=== PATIENT | male | born 1985 | race Caucasian/White ===

== ENCOUNTER 2018-06-21 20:10 | Inpatient (IN) | payer OTHER ==
[~2018-06-21] VITALS: Ht 182.9 cm; Wt 122.9 kg
--- NOTE | ~2018-06-21 | P ---
[facility] [place] [address] PROCEDURE REPORT Name: ASHLEY CAMACHO Room #: 427-P ADM IN M.R.#: [id number] Admission: 06/21/18 Attend Phys: Pee Duran Discharge: Date of : 83 Report #: [id number] THIS REPORT FOR: //name// CC: Pee Duran MD NO PCP DATE OF SERVICE: 06/24/2018 PROCEDURE PERFORMED: ERCP. HISTORY OF PRESENT ILLNESS: The patient is a 32-year-old male who was admitted with pancreatitis, no previous history. No history of alcohol. He underwent an ultrasound of the abdomen on June 21, which showed dilation of the common bile duct at 6.4 mm. Gallbladder was normal. No evidence of stones. MRCP was then performed. No definite intraluminal filling defects is seen to suggest obstruction of the bile duct. Pancreatic duct is normal. Gallbladder normal. Peripancreatic mesenteric inflammatory changes noted and edema consistent with clinical history of acute pancreatitis. The patient had a significant elevation in his bilirubin on admission of 6.0. This has been trending down daily. His bilirubin today is 3.5. His lipase is also improved dramatically from a high of 18,000 to 597. He was febrile yesterday, not today. He has been on IV antibiotics. His white count yesterday was 12.5. Plan is for ERCP. DESCRIPTION OF PROCEDURE: The risks and benefits of the procedure were explained to the patient and those risks including but not limited to bleeding, perforation and the risk of sedation as well as potential risk for post-ERCP pancreatitis. He understood these risks and gave informed consent. The procedure was performed in the Interventional Radiology suite under general anesthesia. A 50 mg indomethacin rectal suppository was given prior to the procedure. The patient was also given cefepime, which he continues to be on as well on a scheduled basis. Next, using an Olympus standard ERCP side-viewing scope, the scope was placed in the patient's mouth and advanced under direct vision to the esophagus, stomach and into the second portion of the duodenum. The major papilla was identified and normal in appearance. Next, using a [employer] 0.025 - sphincterotome catheter, I attempted to cannulate the common bile duct. Initially, the pancreatic duct was cannulated several times, which appeared normal with contrast dye. Eventually, I was able to fill the common bile duct partially with dye; however, in the distal duct, there was a negative portion of filling no obvious stone was noted here. There was no obvious tortuous distal duct, but the very distal common bile duct did not fill normally. I tried multiple times to advance the catheter and/or a wire through this area and was unsuccessful. Several pictures were obtained showing the negative image. At this point, I felt multiple attempts were made and they were unsuccessful to cannulate the common bile duct, even though contrast was filling the mid to proximal common bile duct as well as the intrahepatics. These were [address] [address] PROCEDURE REPORT Name: ASHLEY CAMACHO Room #: 427-P [facility] IN M.R.#: [id number] Admission: 06/21/18 Attend Phys: Pee Duran Discharge: Date of : 83 Report #: [id number] noted to be somewhat dilated as well. At this point, the catheter was withdrawn and the scope was withdrawn and the procedure terminated. The patient tolerated the procedure well. IMPRESSION: Abnormal appearance of the distal common bile duct, difficult to determine as only partial filling occurred in the mid to proximal common bile duct. No obvious stone was noted in this area. No obvious stricture, although need to consider the possibility of this and it is possible the patient has edema from the pancreas is causing this appearance as well. The pancreatic duct appeared normal. RECOMMENDATIONS: 1. Observe the patient post-procedure. 2. Repeat liver function tests as well as lipase and CBC in the morning. If his numbers continue to improve, could consider possible discharge tomorrow. I would recommend an endoscopic ultrasound as an outpatient in the next few weeks for further evaluation of the distal common bile duct and the pancreas. Thank you for allowing me to participate in his care. By: [id number] Jatin Mann MD /nt
[2018-06-21 20:11] VITALS: BP 117/77
[2018-06-21 21:12] LABS: BASOPHILS 0.5 % (0.0-2.0); EOSINOPHILS 0.9 % (0.0-3.0); HEMATOCRIT 41.4 % (42.0-52.0); HEMOGLOBIN 14.4 gm/dL (14.0-18.0); LYMPHOCYTES 12.7 % (24.0-44.0); MCH 29.6 pg (26.0-34.0); MCHC 34.6 g/dL (28.0-37.0); MCV 85.3 fL (80.0-100.0); MONOCYTES 7.6 % (1.0-8.0); PLATELET COUNT 227 thou/uL (150-400); POLYS 78.3 % (36.0-66.0); RBC 4.86 mil/uL (4.50-6.00); RDW 12.9 % (10.5-14.5); WBC 11.5 thou/uL (4.0-11.0)
[2018-06-21 21:12] LABS: URINE BILIRUBIN 2+ (Negative); URINE BLOOD 1+ (Negative); URINE CLARITY CLEAR; URINE COLOR YELLOW; URINE GLUCOSE-RANDOM* NEGATIVE (Negative); URINE KETONES NEGATIVE (Negative); URINE LEUKOCYTES-REFLEX NEGATIVE (Negative); URINE NITRITE-REFLEX NEGATIVE (Negative); URINE PROTEIN (DIPSTICK) NEGATIVE (Negative); URINE UROBILINOGEN 0.2 E.U./dl (0.2-1.0)
[2018-06-21 21:19] LABS: CALCIUM 9.4 mg/dL (8.5-10.1); CREATININE 1.1 mg/dL (0.7-1.3); POTASSIUM 3.1 mmol/L (3.5-5.1)
[2018-06-21 21:23] LABS: ICTOTEST (BILI CONFIRMATORY) Positive (Negative)
[2018-06-21 21:26] LABS: TOTAL PROTEIN 7.8 g/dL (6.4-8.2)
[2018-06-21 21:30] LABS: BACTERIA-REFLEX 1-9 Few /HPF (None Seen); CASTS None Seen /LPF (None Seen); CRYSTALS None Seen /LPF (None Seen); SQUAMOUS 0-3 Few /LPF (0-3); URINE RBC 0-2 Rare /HPF (0-2); URINE WBC-REFLEX 0-5 Rare /HPF (0-5)
[2018-06-21 22:54] VITALS: BP 111/74
[2018-06-21 23:06] VITALS: BP 124/66
[2018-06-21 23:25] VITALS: BP 113/65
--- NOTE | 2018-06-22 00:59 | NUR ---
PT ARRIVED INTO [facility] AT AROUND 2300HRS. HE IS ALERT AND ORIENTED. AMBULATORY. C/O PAIN IN THE EPIGASTRIC AREA. GIVEN DIULADID WITH RELIEF.SATTING WELL ON /. AFEBRILE. DENIES NAUSEA. NPO.RESTING QUIETLY AT THIS TIME.
[2018-06-22 03:35] VITALS: BP 111/65
[2018-06-22 05:38] LABS: HEMATOCRIT 38.1 % (42.0-52.0); HEMOGLOBIN 13.1 gm/dL (14.0-18.0); MCH 29.4 pg (26.0-34.0); MCHC 34.3 g/dL (28.0-37.0); MCV 85.7 fL (80.0-100.0); RBC 4.44 mil/uL (4.50-6.00); RDW 13.2 % (10.5-14.5); WBC 8.5 thou/uL (4.0-11.0)
[2018-06-22 05:55] LABS: ALBUMIN 3.4 g/dL (3.4-5.0); CREATININE 0.9 mg/dL (0.7-1.3); POTASSIUM 3.7 mmol/L (3.5-5.1); TOTAL BILIRUBIN 5.8 mg/dL (<0.1-1.0); TOTAL PROTEIN 6.7 g/dL (6.4-8.2)
[2018-06-22 07:46] VITALS: BP 119/73
--- NOTE | 2018-06-22 08:05 | NUR ---
RECEIVED PT APPROX 0700. A/O. C/O PAIN MANAGED BY MEDS ORDERED. NO NOTED SOA. NO NV. GOAL IS TO GET PAIN UNDER CONTROL TODAY. PT IN MRI AT THIS TIME. WILL CONT. TO MONITOR.
[2018-06-22 09:58] LABS: CHOLESTEROL 149 mg/dL (<200); HDL CHOLESTEROL 28 mg/dL (>40); LDL CHOLESTEROL 103 mg/dL (<100); TC:HDL 5.3 Ratio (Not establshd); TRIGLYCERIDE 90 mg/dL (<150); VLDL 18 mg/dL (<40)
[2018-06-22 15:41] VITALS: BP 121/77
[2018-06-22 19:53] VITALS: BP 143/91
--- NOTE | 2018-06-23 05:40 | NUR ---
ASSUMED CARE AT 1900, ASSESSMENT COMPLETED. PT REPORTS PAIN TO GENERALIZED ABD, SOMETIMES WORSE IN MID/UMBILICAL REGION. C/O NAUSEA WHEN HE MOVES AROUND, NO EMESIS OVERNIGHT. IV FLUIDS INFUSING AT 150 ML/HR. PAIN AND NAUSEA MEDS GIVEN ONCE OVERNIGHT. HAS NOT REQUESTED ANY ICE CHIPS OVERNIGHT, NO PO MEDS. SLIGHT TEMP AT HS 100.2. NO OTHER CONCERNS, WILL CONTINUE TO MONITOR.
[2018-06-23 05:48] LABS: HEMATOCRIT 36.8 % (42.0-52.0); HEMOGLOBIN 12.4 gm/dL (14.0-18.0); MCHC 33.6 g/dL (28.0-37.0); MCV 86.3 fL (80.0-100.0); RBC 4.26 mil/uL (4.50-6.00); RDW 12.7 % (10.5-14.5); WBC 12.5 thou/uL (4.0-11.0)
[2018-06-23 05:52] VITALS: BP 151/90
[2018-06-23 06:07] LABS: ALBUMIN 3.1 g/dL (3.4-5.0); CALCIUM 8.6 mg/dL (8.5-10.1); CREATININE 0.8 mg/dL (0.7-1.3); DIRECT BILIRUBIN 3.3 mg/dL (<0.1-0.3); MAGNESIUM 1.5 mg/dL (1.8-2.4); POTASSIUM 3.6 mmol/L (3.5-5.1); TOTAL BILIRUBIN 4.4 mg/dL (<0.1-1.0)
[2018-06-23 08:00] VITALS: BP 130/79
--- NOTE | 2018-06-23 18:00 | NUR ---
PT ASSESSED AT START OF SHIFT. STATES PAIN IS SOME BETTER. HAS BEEN RUNNING FEVER. IV ANTIBIOTICS STARTED AND BLOOD CULTURE OBTAINED FIRST. PT UP ONLY TO GO TO THE BATHROOM. STATES IT HURTS TO WALK AROUND. DENIED NAUSEA. TAKING ICE ONLY. PLAN FOR ERCP IN AM. MOTHER AT BEDSIDE.
[2018-06-23 20:04] VITALS: BP 129/79
[2018-06-24 04:25] VITALS: BP 117/76
[2018-06-24 04:32] LABS: CALCIUM 8.7 mg/dL (8.5-10.1); CREATININE 0.9 mg/dL (0.7-1.3); TOTAL BILIRUBIN 3.5 mg/dL (<0.1-1.0); TOTAL PROTEIN 6.2 g/dL (6.4-8.2)
--- NOTE | 2018-06-24 06:37 | NUR ---
ASSUMED CARE AT 1900, ASSESSMENT COMPLETED. PT REPORTS MODERATE PAIN IN GENERALIZED ABD, GIVEN IV PAIN MEDS x2. DENIED NAUSEA OVERNIGHT. TOLERATED ICE CHIPS UNTIL MIDNIGHT, THEN NPO FOR ERCP TODAY. PT AWARE HE IS NPO. HS TEMP 100.5, AFEBRILE THIS AM. IV FLUIDS INFUSING OVERNIGHT. NO OTHER CONCERNS, WILL CONTINUE TO MONITOR.
[2018-06-24 17:29] VITALS: BP 118/63
[2018-06-24 19:27] VITALS: BP 131/73
--- NOTE | 2018-06-24 20:24 | NUR ---
ASSUMED CARE OF PT AT 0700. ASSESSMENT COMPLETED. A&O,X4. C/O ABD PAIN, PAIN MEDS GIVEN ORDERED. DENIES N/V/D. LBM 2/3. ERCP TODAY - PT LEFT AT 0848 AND RETURNED IN STABLE CONDITION. IV ABX SENT WITH PT TO ADMINISTER IN ANOTHER DEPT. ANOTHER IV ACCESS OBTAINED, LEFT HAND IV. ADVANCED TO CLEAR LIQUID DIET. DENIES ABD PAIN AT THIS TIME. UP AD SIMON. MOTHER AT BEDSIDE THIS EVENING. END OF SHIFT.
[2018-06-25 04:47] VITALS: BP 126/75
[2018-06-25 05:21] LABS: HEMATOCRIT 36.3 % (42.0-52.0); HEMOGLOBIN 12.2 gm/dL (14.0-18.0); MCH 28.8 pg (26.0-34.0); MCHC 33.5 g/dL (28.0-37.0); MCV 85.9 fL (80.0-100.0); RBC 4.22 mil/uL (4.50-6.00); RDW 12.6 % (10.5-14.5); WBC 10.7 thou/uL (4.0-11.0)
[2018-06-25 05:39] LABS: ALBUMIN 2.7 g/dL (3.4-5.0); CALCIUM 9.2 mg/dL (8.5-10.1); CREATININE 0.7 mg/dL (0.7-1.3); DIRECT BILIRUBIN 1.4 mg/dL (<0.1-0.3); POTASSIUM 3.9 mmol/L (3.5-5.1)
--- NOTE | 2018-06-25 06:29 | NUR ---
ASSUMED CARE AT 1900, ASSESSMENT COMPLETED. PT REPORTED MINIMAL PAIN OVERNIGHT, ONLY GAVE DILAUDID ONCE LATE IN THE AM. DENIED NAUSEA OR SOB. TOLERATING CLEAR LIQUIDS; PER GI NOTE, WENT AHEAD AND ADVANCED DIET TO FULL LIQUIDS FOR BREAKFAST TO TEST PT'S TOLERANCE. PT REPORTED HAVE A LARGE, HARD BM AROUND MIDNIGHT. IV FLUIDS INFUSING. PT REPORTS HE IS HOPING TO D/C HOME TODAY. NO OTHER CONCERNS, WILL CONTINUE TO MONITOR.
[2018-06-25 08:10] VITALS: BP 121/78
--- NOTE | 2018-06-25 10:38 | NUR ---
DR. MCNEAL AT BEDSIDE. ADVANCED DIET TOLERATED. NEW PAIN MED ORDER, D/C IV PAIN MEDS AND START ULTRAM 50 MG Q4H PRN FOR PAIN. D/C PENDING IF TOLERATING DIET AND PAIN WELL CONTROLLED.
[2018-06-25] MEDS ORDERED: TRAMADOL 50 MG50 MG PO (10:39)
--- NOTE | 2018-06-25 11:10 | NUR ---
ASSUMED CARE OF PT AT 0700. ASSESSMENT COMPLETED. DENIES PAIN, N/V/D. LAST BM TODAY. TOLERATING FULL LIQUID DIET, WILL ADVANCE ORDERED. MOTHER AT BEDSIDE. PT WANTS TO DISCHARGE TODAY. WILL CONTINUE TO MONITOR.
[2018-06-25 12:39] VITALS: BP 121/78
--- NOTE | 2018-06-25 14:17 | NUR ---
NEW DISCHARGE ORDERS. PT TOLERATED BLAND LUNCH, NO ABD PAIN OR N/V. DENIES PAIN OR NAUSEA MEDS. PT DRESSED IN STREET CLOTHES. MOTHER AT BEDSIDE. IV X2 REMOVED, GUAZE IN PLACE. NEW SCRIPTS AND CARENOTES GIVEN TO PT. DISCHARGE INFORMATION DISCUSSED, NO QUESTIONS OR CONCERNS. INSTRUCTED TO FOLLOW UP WITH GI OUTPATIENT. PT LEFT THE UNIT VIA WHEELCHAIR IN STABLE CONDITION AT APPROX 14:00.
== END 2018-06-25 14:25 | disposition home or self-care (01) | DRG 438 ==
LOC: ER 20:10 → EROBS 22:00 → 4E 22:00
PROVIDERS: Emergency Medicine; Internal Medicine Gastroenterology; Nurse Practitioner Acute Care; Specialist; ADMIT Hospitalist
PROC: 0F798ZZ Dilation of Common Bile Duct, Via Natural or Artificial Opening Endoscopic (ICD-10-PCS; principal; 2018-06-24)
DX: K85.10 Biliary acute pancreatitis without necrosis or infection (principal); E43 Unspecified severe protein-calorie malnutrition; F17.210 Nicotine dependence, cigarettes, uncomplicated; E87.6 Hypokalemia; R74.0 Nonspecific elevation of levels of transaminase and lactic acid dehydrogenase [LDH]; K83.8 Other specified diseases of biliary tract; Z68.36 Body mass index [BMI] 36.0-36.9, adult
CPT/HCPCS: 10084; 62110; 62900; 70005

== ENCOUNTER 2018-12-08 20:07 | Emergency (ER) | payer BC, OTHER ==
[~2018-12-08] VITALS: Ht 182.9 cm; Wt 104.3 kg
[~2018-12-08 20:07] MED LIST: TRAMADOL 50 MG50 MG PO
[2018-12-08 20:35] LABS: URINE BLOOD 3+ (Negative); URINE CLARITY CLEAR; URINE COLOR YELLOW; URINE GLUCOSE-RANDOM* NEGATIVE (Negative); URINE KETONES 1+ (Negative); URINE LEUKOCYTES-REFLEX NEGATIVE (Negative); URINE NITRITE-REFLEX NEGATIVE (Negative); URINE PROTEIN (DIPSTICK) 1+ (Negative); URINE SPECIFIC GRAVITY >= 1.030 (1.005-1.035)
[2018-12-08 20:36] LABS: ICTOTEST (BILI CONFIRMATORY) Negative (Negative); URINE BILIRUBIN NEGATIVE (Negative)
[2018-12-08 20:43] LABS: ABSOLUTE NEUTROPHILS 6.9 thou/uL (1.4-8.2); BASOPHILS 0.4 % (0.0-2.0); EOSINOPHILS 0.7 % (0.0-3.0); HEMATOCRIT 40.9 % (42.0-52.0); HEMOGLOBIN 13.7 gm/dL (14.0-18.0); LYMPHOCYTES 13.4 % (24.0-44.0); MCH 29.3 pg (26.0-34.0); MCHC 33.6 g/dL (28.0-37.0); MCV 87.3 fL (80.0-100.0); MONOCYTES 5.2 % (1.0-8.0); PLATELET COUNT 211 thou/uL (150-400); POLYS 80.3 % (36.0-66.0); RBC 4.68 mil/uL (4.50-6.00); RDW 13.1 % (10.5-14.5); WBC 8.6 thou/uL (4.0-11.0)
[2018-12-08 20:43] LABS: BACTERIA-REFLEX 1-9 Few /HPF (None Seen); CASTS None Seen /LPF (None Seen); CRYSTALS None Seen /LPF (None Seen); SQUAMOUS None Seen /LPF (0-3); URINE RBC >20 Many /HPF (0-2); URINE WBC-REFLEX None Seen /HPF (0-5)
[2018-12-08 20:52] LABS: CALCIUM 9.8 mg/dL (8.5-10.1); CREATININE 1.1 mg/dL (0.7-1.3); POTASSIUM 3.8 mmol/L (3.5-5.1)
[2018-12-08 21:04] LABS: ALBUMIN 4.5 g/dL (3.4-5.0); TOTAL BILIRUBIN 0.6 mg/dL (<0.1-1.0); TOTAL PROTEIN 8.2 g/dL (6.4-8.2)
[2018-12-08] MEDS ORDERED: TRAMADOL 50 MG50 MG PO (21:45)
[2018-12-08] MEDS ORDERED: ONDANSETRON ODT8 MG PO (21:45)
[2018-12-08] MEDS ORDERED: FLOMAX0.4 MG PO (21:45)
[2018-12-08] MEDS ORDERED: TORADOL 10 MG T10 MG PO (21:45)
[2018-12-08 22:07] VITALS: BP 113/60
== END 2018-12-08 22:11 | disposition home or self-care (01) ==
LOC: ER 20:07
PROVIDERS: Emergency Medicine
DX: N20.1 Calculus of ureter (principal); R11.2 Nausea with vomiting, unspecified; R10.11 Right upper quadrant pain; E66.9 Obesity, unspecified; F17.210 Nicotine dependence, cigarettes, uncomplicated; Z98.890 Other specified postprocedural states

== ENCOUNTER 2019-12-16 01:15 | Inpatient (IN) | payer BC, OTHER ==
[2019-12-16] VITALS (7 sets, daily range): BP systolic 109–139; BP diastolic 67–82
[~2019-12-16] VITALS: Ht 182.9 cm; Wt 118.3 kg
[~2019-12-16 01:15] MED LIST changes: +FLOMAX0.4 MG PO; +ONDANSETRON ODT8 MG PO; +TORADOL 10 MG T10 MG PO
[2019-12-16] MEDS ORDERED: NOHOMEMEDICATIONS (01:19)
[2019-12-16 01:40] LABS: URINE BILIRUBIN NEGATIVE (Negative); URINE BLOOD 1+ (Negative); URINE CLARITY CLEAR; URINE COLOR YELLOW; URINE GLUCOSE-RANDOM* NEGATIVE (Negative); URINE KETONES TRACE (Negative); URINE LEUKOCYTES-REFLEX NEGATIVE (Negative); URINE NITRITE-REFLEX NEGATIVE (Negative); URINE PROTEIN (DIPSTICK) NEGATIVE (Negative); URINE SPECIFIC GRAVITY >= 1.030 (1.005-1.035); URINE UROBILINOGEN 0.2 E.U./dl (0.2-1.0)
[2019-12-16 01:49] LABS: ABSOLUTE NEUTROPHILS 5.1 thou/uL (1.4-8.2); BASOPHILS 0.5 % (0.0-2.0); EOSINOPHILS 2.1 % (0.0-3.0); HEMATOCRIT 43.4 % (42.0-52.0); HEMOGLOBIN 14.6 gm/dL (14.0-18.0); MCH 29.5 pg (26.0-34.0); MCHC 33.7 g/dL (28.0-37.0); MCV 87.6 fL (80.0-100.0); MONOCYTES 5.1 % (1.0-8.0); PLATELET COUNT 227 thou/uL (150-400); POLYS 70.3 % (36.0-66.0); RBC 4.96 mil/uL (4.50-6.00); WBC 7.3 thou/uL (4.0-11.0)
[2019-12-16 01:57] LABS: CALCIUM 8.7 mg/dL (8.5-10.1); POTASSIUM 3.9 mmol/L (3.5-5.1)
[2019-12-16 02:03] LABS: ALBUMIN 4.3 g/dL (3.4-5.0); TOTAL BILIRUBIN 0.3 mg/dL (0.2-1.0); TOTAL PROTEIN 8.2 g/dL (6.4-8.2)
[2019-12-16 02:08] LABS: BACTERIA-REFLEX None Seen /HPF (None Seen); CASTS None Seen /LPF (None Seen); CRYSTALS None Seen /LPF (None Seen); MUCUS None Seen strn/LPF (None Seen); SQUAMOUS None Seen /LPF (0-3); URINE RBC 0-2 Rare /HPF (0-2); URINE WBC-REFLEX None Seen /HPF (0-5)
[2019-12-17 05:00] VITALS: BP 139/78
[2019-12-17 07:45] VITALS: BP 142/80
[2019-12-17] MEDS ORDERED: NORCO 10-325 T1 EACH PO (10:06)
[2019-12-17 12:56] VITALS: BP 142/80
--- NOTE | 2019-12-18 09:16 | O ---
[facility] [place] [address] OPERATIVE REPORT Name: ASHLEY CAMACHO Room #: 441-P [facility] IN M.R.#: [id number] Admission: 12/16/19 Attend Phys: Dino Mann MD Discharge: 12/17/19 Date of : 83 Report #: [id number] THIS REPORT FOR: cc: EMILY - No family physician/PCP EMILY - No family physician/PCP Nicolás Gustafson MD ~ CC: Dino DIAZ physician/PCP DATE OF SERVICE: 12/17/2019 PREOPERATIVE DIAGNOSIS: Acute cholecystitis. POSTOPERATIVE DIAGNOSIS: Acute cholecystitis. OPERATION: Laparoscopic cholecystectomy. SURGEON: Nicolás Gustafson MD ANESTHESIA: General. ESTIMATED BLOOD LOSS: 30 mL. SPECIMEN: Gallbladder. DESCRIPTION OF PROCEDURE: After informed consent was obtained, the patient was brought to the operating room and placed supine. SCDs were placed and working, preoperative antibiotics were administered, general anesthesia was induced. The abdomen was prepped and draped in the usual sterile fashion. A 10-mm incision was made above the umbilicus. Fascia was incised and a trocar was placed. Pneumoperitoneum was established. Three right upper quadrant 5-mm ports were placed. Gallbladder was grasped at the fundus and retracted cephalad. Infundibulum was grasped and retracted laterally. I dissected out the cystic duct and the cystic artery as well as the cystic plate. Pictures were taken to document this. Cystic artery was clipped and ligated leaving a clip on the remaining artery. The cystic duct was clipped and ligated leaving a clip and a PDS Endoloop on the remaining duct. Gallbladder was then taken off the liver bed with electrocautery. It was placed into an Endopouch and removed. Fascia was then closed with a [id number]-[id number] 0 Vicryl. The skin was closed with 4-0 Monocryl. Incisions were sealed with Dermabond. COMPLICATIONS: None. [facility] [address] [place] [address] OPERATIVE REPORT Name: ASHLEY CAMACHO Room #: 441-P [facility].#: [id number] Admission: 12/16/19 Attend Phys: Dino Mann MD Discharge: 12/17/19 Date of : 83 Report #: [id number] DISPOSITION: The patient was taken to recovery in satisfactory condition. <ELECTRONICALLY SIGNED> By: Nicolás Gustafson MD 12/18/19 0916 [id number] Nicolás Gustafson MD /nt
== END 2019-12-17 13:41 | disposition home or self-care (01) | DRG 419 ==
LOC: ER 01:15 → EROBS 04:58 → 4S 05:36
PROVIDERS: Emergency Medicine; ADMIT Surgery; ATTEND Surgery
PROC: 0FT44ZZ Resection of Gallbladder, Percutaneous Endoscopic Approach (ICD-10-PCS; principal; 2019-12-17)
DX: K80.00 Calculus of gallbladder with acute cholecystitis without obstruction (principal); F17.210 Nicotine dependence, cigarettes, uncomplicated; Z79.899 Other long term (current) drug therapy; Z72.89 Other problems related to lifestyle; Z03.818 Encounter for observation for suspected exposure to other biological agents ruled out
CPT/HCPCS: 10195; 50010; 50249; 50411; 50555; 51297; 51489; 52265; 52266; 53307; 53312; 53314; 54118; 55245; 56462; 56525; 56526

== ENCOUNTER 2020-01-09 05:29 | Emergency (ER) | payer BC, OTHER ==
[~2020-01-09] VITALS: Ht 182.9 cm; Wt 113.4 kg
[~2020-01-09 05:29] MED LIST changes: +NOHOMEMEDICATIONS; +NORCO 10-325 T1 EACH PO
[2020-01-09 06:19] LABS: ABSOLUTE NEUTROPHILS 2.4 thou/uL (1.4-8.2); BASOPHILS 0.9 % (0.0-2.0); HEMATOCRIT 39.7 % (42.0-52.0); HEMOGLOBIN 13.4 gm/dL (14.0-18.0); MCH 29.5 pg (26.0-34.0); MCHC 33.8 g/dL (28.0-37.0); MCV 87.2 fL (80.0-100.0); MONOCYTES 8.8 % (1.0-8.0); PLATELET COUNT 235 thou/uL (150-400); POLYS 49.3 % (36.0-66.0); RBC 4.55 mil/uL (4.50-6.00); RDW 13.1 % (10.5-14.5); WBC 4.8 thou/uL (4.0-11.0)
[2020-01-09 06:26] LABS: ANION GAP 9 mmol/L (7-16); BUN 15 mg/dL (7-18); CALCIUM 8.7 mg/dL (8.5-10.1); CHLORIDE 104 mmol/L (98-107); CO2 27 mmol/L (21-32); CREATININE 0.9 mg/dL (0.7-1.3); GLUCOSE 105 mg/dL (74-106); POTASSIUM 3.7 mmol/L (3.5-5.1); SODIUM 140 mmol/L (136-145)
[2020-01-09 06:36] LABS: ALBUMIN 3.7 g/dL (3.4-5.0); MAGNESIUM 1.9 mg/dL (1.8-2.4); SGOT 24 U/L (15-37); SGPT 54 U/L (30-65); TOTAL BILIRUBIN 0.5 mg/dL (0.2-1.0); TOTAL PROTEIN 7.5 g/dL (6.4-8.2); TROPONIN-I <0.06 ng/mL (<0.06)
[2020-01-09 06:58] LABS: URINE BILIRUBIN NEGATIVE (Negative); URINE BLOOD TRACE (Negative); URINE CLARITY CLEAR; URINE COLOR YELLOW; URINE GLUCOSE-RANDOM* NEGATIVE (Negative); URINE KETONES NEGATIVE (Negative); URINE LEUKOCYTES-REFLEX NEGATIVE (Negative); URINE NITRITE-REFLEX NEGATIVE (Negative); URINE PROTEIN (DIPSTICK) NEGATIVE (Negative); URINE UROBILINOGEN 0.2 E.U./dl (0.2-1.0)
--- NOTE | 2020-01-09 08:26 | EKG ---
[facility] [place] [address] ELECTROCARDIOGRAM REPORT Name: ASHLEY CAMACHO Room #: [facility]#: [id number] Admission: 01/09/20 Attend Phys: Discharge: Date of : 83 Report #: [id number] THIS REPORT FOR: cc: [facility] - Clinic physician unknown [facility] - Clinic physician unknown Justus Cruz MD [facility] ~ THIS REPORT FOR: //name// [facility] ED Test Date: 2020-01-09 Test Time: 06:04:39 Pat Name: ASHLEY CAMACHO Department: Room: Gender: M Brazer Induction: : 1985 Requested By: Ilya Jacques Order Number: [id number] MD: Justus Cruz Measurements Intervals [place] Rate: 64 P: 2 AL: 145 QRS: 39 QRSD: 101 T: 42 QT: 375 QTc: 387 Interpretive Statements Sinus rhythm Normal tracing No previous ECG available for comparison Electronically Signed On 01-09-2020 8:26:00 CDT by Justus Cruz [email or web address] <ELECTRONICALLY SIGNED> By: Justus Cruz MD, FAC 01/09/20 0826 0604 3 Justus Cruz MD, FACC /EPI
[2020-01-09 08:45] VITALS: BP 118/63
== END 2020-01-09 08:55 | disposition home or self-care (01) ==
LOC: ER 05:29
PROVIDERS: Emergency Medicine
DX: R53.83 Other fatigue (principal); R68.83 Chills (without fever); F17.210 Nicotine dependence, cigarettes, uncomplicated; Z20.828 Contact with and (suspected) exposure to other viral communicable diseases